=== PATIENT | female | born 1965 | race Caucasian/White ===

== ENCOUNTER 2021-02-22 05:42 | Observation (INO) ==
--- NOTE | 2021-02-17 10:39 | Anesthesiology Consultation ---
Date of Service February 17, 2021 Assessment & Plan (1) Encounter for pre-operative examination: - COVID screening: Per assessment on 02/17: Travel screen negative, no known COVID-19 positive contacts or current COVID-19 related symptoms. Surgeon arranging preop COVID testing (scheduled 02/18; [place]). Awaiting results. - Phentermine instructions: Patient spoke with PAT RN 02/17. She stated she had already taken that day's dose of Phentermine but would start holding it from then until after surgery. Reviewed with Dr. Mireles. Phentermine will be held 4 days prior to surgery. He feels this is long enough and okay to proceed with surgery as scheduled. Chart Review Chart Review: Acceptable Risk for Surgery and Patient NOT seen in Pre Admission Testing History Surgery Operation Date: 02/22/21 07:45 Proposed Procedures p C3-C5 Anterior Cervical Discectomy and Fusion, Spinal Cord Monitoring - Rubens El, Height/Weight Height: 5 ft 4 in Weight: 114.759 kg Allergies Allergy/AdvReac Type Severity Reaction Status Date / Time meloxicam [From Mobic] Allergy blisters Verified 02/17/21 09:50 on tongue morphine Allergy Hives Verified 02/17/21 09:50 Medications Home Medications Medication Instructions Recorded Confirmed Last Taken acetaminophen 325 mg tablet 325 mg PO QID PRN 02/17/21 02/17/21 Unknown (Tylenol) gabapentin 100 mg tablet 100 mg PO TID 02/17/21 02/17/21 Unknown losartan 25 mg tablet 25 mg PO QAM 02/17/21 02/17/21 Unknown phentermine 37.5 mg tablet 37.5 mg PO QAM 02/17/21 02/17/21 Unknown (Adipex-P) sumatriptan succinate 50 mg tablet 50 mg PO UD PRN 02/17/21 02/17/21 Unknown (Imitrex) topiramate 100 mg tablet 100 mg PO HS 02/17/21 02/17/21 Unknown venlafaxine 150 mg 150 mg PO HS 02/17/21 02/17/21 Unknown capsule,extended release 24 hr (Effexor XR) Past Medical History Medical History Depression History of skin cancer s/p excision HTN (hypertension) Migraines Morbid obesity Spinal stenosis Past Family History Family History Mother PONV (postoperative nausea and vomiting) Father Diabetes Past Surgical History Surgical History History of cervical spinal surgery History of colonoscopy History of elbow surgery Left History of endometrial ablation History of esophagogastroduodenoscopy (EGD) History of lumbar surgery History of mandibular surgery History of sinus surgery History of tubal ligation History of umbilical hernia repair PONV (postoperative nausea and vomiting) Social History Smoking Status: Never smoker Do You Dip or Chew Tobacco: No Hx Alcohol Use: No Hx Substance Use: No substance use type: does not use Lab Results Anesthesia Preop Results Results Anesthesia Widget: WBC 9.62 K/uL (4.8-10.8) 02/10/21 Hgb 13.8 g/dL (12.0-16.0) 02/10/21 Hct 42.4 % (37-47) 02/10/21 Plt 339 K/uL (130-400) 02/10/21 Na 138 mmol/L (136-145) 02/10/21 K 3.9 mmol/L (3.5-5.1) 02/10/21 Cl 107 mmol/L (98-107) 02/10/21 CO2 26 mmol/L (21-32) 02/10/21 BUN 18 mg/dl (7-18) 02/10/21 Creat 0.79 mg/dl (0.6-1.2) 02/10/21 Glucose Level 86 mg/dl (70-99) 02/10/21 PT 9.7 Seconds (9.0-12.0) 02/10/21 INR 1.0 (0.9-1.1) 02/10/21 Urine Color Yellow 02/10/21 Urine Appearance Clear (Clear) 02/10/21 Urine pH 5.5 (4.5-7.5) 02/10/21 Urine Specific [place] 1.013 (1.000-1.030) 02/10/21 Urine Protein Negative (Negative) 02/10/21 Urine Glucose (UA) Negative (Negative) 02/10/21 Urine Ketones Negative (Negative) 02/10/21 Urine Blood Negative (Negative) 02/10/21 Urine Nitrite Negative (Negative) 02/10/21 Urine Bilirubin Negative (Negative) 02/10/21 Urine Urobilinogen Negative (Negative) 02/10/21 Urine Leukocyte Esterase Trace (Negative) H 02/10/21 Urine WBC (Auto) 1-5 /hpf (0-5) 02/10/21 Urine RBC (Auto) 0-4 /hpf (0-4) 02/10/21 Urine Hyaline Casts (Auto) 1-5 /lpf (0-5) 02/10/21 Urine Epithelial Cells (Auto) >30 /lpf (0-5) H 02/10/21 Urine Bacteria (Auto) Negative (Negative) 02/10/21 Testing Electrocardiogram Date: 02/10/21 NSR at 70bpm. LAD. Chest X-Ray Date: 02/10/21 FINDINGS: No pneumothorax. No pleural effusions. Hazy appearance of the left lung base likely represents prominent mediastinal fat. Otherwise, the lungs are clear. No evidence for pulmonary edema. The heart is normal in size. Prior cholecystectomy. Cervical spinal fusion hardware is noted. IMPRESSION: No acute process.
[2021-02-22] MEDS ORDERED: LR 500ML BOLUS IV SCH (06:00)
[2021-02-22] MEDS ORDERED: GABAPENTIN 600 MG DOSE PO SCH (06:00)
[2021-02-22] MEDS ORDERED: ACETAMINOPHEN 500 MG TAB PO SCH (06:00)
[2021-02-22] MEDS ORDERED: ceFAZolin 2000MG 2,000 MG/15 ML SYR IV SCH (06:00)
[2021-02-22] MEDS ORDERED: PROPOFOL IV EMULSION 10 MG/ML 20 ML VIAL IV ONE (06:56)
[2021-02-22] MEDS ORDERED: LIDOCAINE 2% 2 ML VIAL/AMP(20MG/ML) INFIL ONE (06:56)
[2021-02-22] MEDS ORDERED: DEXAMETHASONE SOD INJ 4 MG/ML VIAL ONE ×2 (06:56)
[2021-02-22] MEDS ORDERED: ONDANSETRON INJ 2 MG/ML 2 ML VIAL ONE ×2 (06:56→07:54)
[2021-02-22] MEDS ORDERED: ROCURONIUM BROMIDE 10 MG/ML 5 ML VIAL IV ONE (06:57)
[2021-02-22] MEDS ORDERED: NEOSTIGMINE METHYLSULFATE 1 MG/ML 10ML VIAL ONE (06:57)
[2021-02-22] MEDS ORDERED: MIDAZOLAM HCL 1 MG/ML 2ML VIAL ONE (06:57)
[2021-02-22] MEDS ORDERED: GLYCOPYRROLATE 0.2 MG/ML VIAL ONE (06:57)
[2021-02-22] MEDS ORDERED: fentaNYL citrate 100 MCG/2 ML VIAL ONE ×2 (06:58→09:16)
[2021-02-22] MEDS ORDERED: SCOPOLAMINE 1 MG TDSY TD ONE ×2 (07:09→07:11)
[2021-02-22] MEDS ORDERED: MEPERIDINE HCL 25 MG/ML CARP/VIAL IV PRN (07:11)
[2021-02-22] MEDS ORDERED: ATROPINE SULFATE 0.1 MG/ML 10ML SYR IV PRN (07:11)
[2021-02-22] MEDS ORDERED: PHENYLEPHRINE 100MCG/ML 5ML SYR IV PRN (07:11)
[2021-02-22] MEDS ORDERED: LABETALOL HCL IV 5 MG/ML 20ML IV PRN (07:11)
[2021-02-22] MEDS ORDERED: ePHEDrine sulfate 50 MG/ML AMP IV PRN (07:11)
[2021-02-22] MEDS ORDERED: fentaNYL citrate 100 MCG/2 ML VIAL IV PRN (07:11)
[2021-02-22] MEDS ORDERED: ONDANSETRON INJ 2 MG/ML 2 ML VIAL IV PRN ×2 (07:11→11:39)
--- NOTE | 2021-02-22 07:29 | History & Physical Bridge Note ---
Date of Service February 22, 2021 History & Physical Bridge Note I have examined the patient, reviewed the History & Physical and in the interval since the performance of the History & Physical I have noted the following changes of clinical significance: no changes noted
--- NOTE | 2021-02-22 07:30 | History & Physical Report ---
Date of Service February 22, 2021 Assessment & Plan (1) Cervical stenosis of spinal canal: Plan: C3-C5 anterior cervical discectomy and fusion History of Present Illness Chief Complaint: Neck and arm pain Primary Care Provider: Cleve Richards MD This is a 56-year-old female presents with chronic persistent neck and arm pain after failing course of nonoperative care she is here for surgical intervention. Allergies Allergy/AdvReac Type Severity Reaction Status Date / Time meloxicam [From Mobic] Allergy blisters Verified 02/22/21 06:18 on tongue morphine Allergy Hives Verified 02/22/21 06:18 Home Medications Medication Instructions Recorded Confirmed Type acetaminophen 325 mg tablet 325 mg PO QID PRN 02/17/21 02/22/21 History (Tylenol) gabapentin 100 mg tablet 100 mg PO TID 02/17/21 02/22/21 History losartan 25 mg tablet 25 mg PO QAM 02/17/21 02/22/21 History phentermine 37.5 mg tablet 37.5 mg PO QAM 02/17/21 02/22/21 History (Adipex-P) sumatriptan succinate 50 mg tablet 50 mg PO UD PRN 02/17/21 02/22/21 History (Imitrex) topiramate 100 mg tablet 100 mg PO HS 02/17/21 02/22/21 History venlafaxine 150 mg 150 mg PO HS 02/17/21 02/22/21 History capsule,extended release 24 hr (Effexor XR) Past Med/Surg History Medical History Depression History of skin cancer s/p excision HTN (hypertension) Migraines Morbid obesity Spinal stenosis Surgical History History of cervical spinal surgery History of colonoscopy History of elbow surgery Left History of endometrial ablation History of esophagogastroduodenoscopy (EGD) History of lumbar surgery History of mandibular surgery History of sinus surgery History of tubal ligation History of umbilical hernia repair PONV (postoperative nausea and vomiting) Family History Mother PONV (postoperative nausea and vomiting) Father Diabetes Social History Smoking Status: Never smoker Second Hand Exposure: Yes ( is a smoker); Do You Dip or Chew Tobacco: No; Hx Alcohol Use: No Hx Substance Use: No Preferred Language: Khmer Communication Ability: Effective Assembler Handbags Required: No Beliefs That Will Affect Care: None Current Living Situation: Spouse and Family Feels Safe at Home: Yes Safety Concerns: Feels Safe At This Time Assistive Devices: Contacts and Glasses Physical Exam Physical Exam: Patient is alert and oriented Heart regular rhythm Lungs clear to auscultation Results & Data ([facility]) Vital Signs (Past 12 Hours) Vital Signs Temp Pulse Resp BP Pulse Ox 02/22/21 06:26 36.8 C 84 16 169/104 H 96
[2021-02-22] MEDS ORDERED: FLOSEAL HEMOSTATIC MATRIX 10ML TOP ONE (08:25)
[2021-02-22] MEDS ORDERED: ePHEDrine sulfate 50 MG/ML SYR ONE (09:13)
[2021-02-22] MEDS ORDERED: PHENYLEPHRINE 100MCG/ML 5ML SYR ONE (09:13)
--- NOTE | 2021-02-22 09:26 | Operative Report ---
Post Operative Report Pre & Post Diagnosis Operation Date: 02/22/21 07:45 Pre-Op Diagnosis: Spinal Stenosis, Cervical Region Post-Op Diagnosis: Spinal Stenosis, Cervical Region I identified the patient and participated in the time-out.: Yes Procedure Operation Date: 02/22/21 07:45 Actual Procedures #1 anterior cervical discectomy with bilateral foraminotomies C3-4 and C4-C5. #2 anterior cervical arthrodesis C3-C4 and C4-C5. #3 placement of globus coalition cage 7 mm C3-C4 and 6 mm at C4-C5 both filled with I factor. Surgeon Rubens El, DO Family Consumer Scientist Malina Ba Estimated Blood Loss 10 Findings See Below Patient is 5 foot 415 kg with a BMI in excess of 43. Patient's body habitus did contribute to significant technical difficulty with patient positioning and exposure adding at least 50% increase to the operative time. Specimens None Indications This is a 56-year-old female who presents with above-mentioned diagnosis after failing course of nonoperative care is here for the above-mentioned procedure. Description of Procedure Patient was met with identified informed consent obtained. Patient was then taken to the operative suite underwent a patient placed in spine position [place] with head Daley gang head saw operator. All bony prominences well-padded eyes inspected to ensure no external pressure placed upon. This point the anterior cervical spine was prepped and draped in a sterile fashion. The assistance of fluoroscopy identified the C for vertebral body and a transverse incision was placed along the right anterior aspect of the cervical spinal lines region. Sharp dissection with the assistance of bipolar electrocautery was performed down to expose the anterior cervical spine from C3-C5. Is able to retractors placed. Then performed a complete discectomy of C3-C4 out to the uncovertebral joints bilaterally. Distracting pins utilized to assist in visualization. Removed all posterior annular fibers longitudinal ligament bilateral foraminotomies performed. The endplates were then burred to subcortical bleeding bone and a 7 mm coalition interbody cage filled with I factor was tapped in position and screwed into place with a fluoroscopic visualization. And then proceeded to C4-C5 again complete discectomy performed out to the uncovertebral's bilaterally. [place] distracting pins again utilized. Removed all posterior annular fibers longitudinal ligament bilateral foraminotomies performed. Endplates burred to subcortical being bone and a 6 mm globus cage filled with I factor tapped in position and screwed into place with fluoroscopic visualization. Incision was then copiously irrigated explored to ensure no d amage to surrounding structures remaining bleeding. 10 round JASPREET drain inserted. Was then closed with 2 Vicryl in a fashion of 4 Monocryl for final skin closure. Steri-Strip sterile dressings placed. Patient will continue PACU stable condition. Please note spinal cord monitoring was utilized at the procedure no changes noted. Lastly Malina Ba was present at the entire procedure involved the patient positioning complex portions of the surgery and final skin closure. I attest to the content of the Intraoperative Record and any orders documented therein. Any exceptions are noted below.
--- NOTE | 2021-02-22 10:47 | Anesthesiology Progress Note ---
Date of Service February 22, 2021 Anesthesia Post Procedure Vital Signs Vital Signs: Temp Pulse Pulse Resp BP Pulse Ox 02/22/21 10:35 85 14 151/101 H 94 02/22/21 10:25 72 14 155/109 H 96 02/22/21 10:15 79 12 132/100 97 02/22/21 10:05 89 12 163/101 H 96 02/22/21 09:56 80 15 152/96 H 97 02/22/21 09:46 86 16 151/99 H 93 02/22/21 09:37 36.1 C L 85 16 163/94 H 97 02/22/21 06:26 36.8 C 84 16 169/104 H 96 Pain Intensity Upper Posterior Neck: Pain Intensity: 2 Transfer of Care Handoff Completed per policy Notes Mental Status: alert / awake / arousable Patient Amnestic to Procedure: Yes Nausea / Vomiting: adequately controlled Pain: adequately controlled Airway Patency, RR, SpO2: stable & adequate BP & HR: stable & adequate Hydration State: stable & adequate Anesthetic Complications: no major complications apparent and Pt Satisfied with anesthetic care Notes: The patient is awake and comfortable. Her vital signs are stable. The patient's neck does not appear swollen and her dressing is dry. The patient was instructed to call for a nurse immediately if she experiences any trouble breathing or any neck swelling on the floor.
[2021-02-22] MEDS ORDERED: RACEPINEPHRINE 2.25% NEBU SOLN 0.5 ML VIAL INH PRN (11:39)
[2021-02-22] MEDS ORDERED: PROMETHAZINE HCL 12.5 MG in SODIUM CHLORIDE 0.9% 50 ML IV PRN (11:39)
[2021-02-22] MEDS ORDERED: hydrOXYzine HCl 25 MG TAB PO PRN (11:39)
[2021-02-22] MEDS ORDERED: HYDROmorphone INJ 0.5 MG/0.5 ML SYR IV PRN (11:39)
[2021-02-22] MEDS ORDERED: ACETAMINOPHEN 500 MG TAB PO PRN (11:39)
[2021-02-22] MEDS ORDERED: bisacodyL 10 MG SUPP PR PRN (11:39)
[2021-02-22] MEDS ORDERED: dexAMETHasone 8 MG in SYRINGE 0 ML IV PRN (11:39)
[2021-02-22] MEDS ORDERED: diphenhydrAMINE Capsule 25 MG CAP PO PRN (11:39)
[2021-02-22] MEDS ORDERED: DO NOT ADMINISTER PNEUMOCOCCAL VACCINE PRN (11:39)
[2021-02-22] MEDS ORDERED: ONDANSETRON 4 MG OD TAB PO PRN (11:39)
[2021-02-22] MEDS ORDERED: FAMOTIDINE 20 MG TAB PO PRN (11:39)
[2021-02-22] MEDS ORDERED: SUMAtriptan succinate 50 MG TAB PO PRN (11:39)
[2021-02-22] MEDS ORDERED: LORazepam 0.5 MG TAB PO PRN (11:39)
[2021-02-22] MEDS ORDERED: HYDROmorphone INJ 1 MG/ML SYRINGE IV PRN (11:39)
[2021-02-22] MEDS ORDERED: NALOXONE HCL 0.4 MG/1 ML VIAL/CARP IV PRN (11:39)
[2021-02-22] MEDS ORDERED: MAGNESIUM HYDROXIDE SUSP 30 ML UDC PO PRN (11:39)
[2021-02-22] MEDS ORDERED: ALUMINUM/MAGNESIUM SUSP 30 ML UDC PO PRN (11:39)
[2021-02-22] MEDS ORDERED: ACETAMINOPHEN 1,000 MG/100 ML VIAL IV PRN (11:39)
[2021-02-22] MEDS ORDERED: DO NOT ADMINISTER FLU VACCINE PRN (11:39)
[2021-02-22] MEDS ORDERED: METOCLOPRAMIDE HCL INJ 5 MG/ML 2 ML VIAL IV PRN (11:39)
[2021-02-22] MEDS ORDERED: SOD PHOSPHATE/SOD BIPHOSPHATE ENEMA 132 ML BTL PR PRN (11:39)
[2021-02-22] MEDS ORDERED: LORazepam 0.5 MG/1 ML VIAL IV PRN (11:39)
--- NOTE | 2021-02-22 11:53 | Fluoroscopy Report ---
FL cervical 2-3V CLINICAL HISTORY: C3-5 ACDF COMPARISON STUDY: None FLUOROSCOPY TIME: 11 6 seconds. NUMBER OF FLUOROSCOPIC IMAGES: 2 FINDINGS: Intraoperative fluoroscopic images are presented for review. ACDF placement is seen within C3 and C4 level. Also multiple metallic screws and fixating plates are seen within lower cervical-upper thoracic level. Endotracheal tube is projecting over tracheal air co lumn. IMPRESSION: As above. ACT 112: Negative or not required by law. The above report was generated using voice recognition software. It may contain grammatical, syntax o r spelling errors. Electronically signed by: Padmini Blackwood DO 02/22/2021 11:52 AM
--- NOTE | 2021-02-22 12:40 | Hospitalist Consultation ---
Date of Consultation February 22, 2021 Assessment & Plan (1) Cervical stenosis of spinal canal: s/p C3-C5 anterior cervical discectomy and fusion with Dr. El on 02/22. EBL 10cc. 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) Continue losartan 25mg daily but hold for AM dose to ensure BMP stable --> will order 1 dose for now as BP currently 148/95 Hydralazine added prn SBP >180 or DBP >90 Continue ot monitor (3) Migraines: and depression -- continue topamax 100mg, effexor 150mg HS Sumatriptan prn migraine -- no migraine/headache reported currently Continue to monitor (4) Morbid obesity: On phentermine 37.5mg daily -- hold while in hospital (also non-formulary) -- discussed with patient as well BMI 43.5 Encourage weight loss/dietary changes (5) DVT prophylaxis: SCDs chemical contraindicated due to above surgery Dispo: continued inpatient stay Thank you for allowing hospitalist service to participate in the care of Ms Castillo. Hospitalist service will follow along while inpatient, but anticipate discharge tomorrow. Please call with any questions/concerns. Supervising Physician Co-Signing Physician Notes PA Supervision Note: I personally saw and examined the patient. I verified all paz points and agree with ARMANDO Moon with the following exceptions and/or additions: S-patient feeling fairly well, is tolerating liquids. Minimal pain in the neck. Denies chest pain or shortness of breath History and ROS reviewed O- Vitals reviewed Gen: AAOx3, NAD HEENT: Anicteric sclerae, EOMI, neck in brace with JASPREET drain with serosanguineous fluid CV: RRR no mgr nl S1S2 Pulm: CTAB no wcr Abd: +BS soft NT ND no masses or hernias Ext: No edema, SCDs in place Skin: No rashes, warm/dry Neuro: Moving all extremities A/L-33-pknt-old female here for ACDF with history as above Plan outlined as above We will follow blood pressures, labs in the morning History of Present Illness Reason for Consultation: medical management Requesting Physician: Dr El Attending Physician: Rubens El, DO History of Present Illness 56yo female with PMHx significant for HTN, migrine, obesity, depression and spi nal stenosis, presented for #1 anterior cervical discectomy with bilateral foraminotomies C3-4 and C4-C5. #2 anterior cervical arthrodesis C3-C4 and C4- C5. #3 placement of globus coalition cage 7 mm C3-C4 and 6 mm at C4-C5 both filled with I factor with Dr. El this morning. Patient did have elevated BP prior to surgery and admits she did not take her losartan this morning. Discussed will add for AM if Cr stable and utilize hydralazine IV as needed for meantime. She has history of nausea and vomiting following anesthesia and had gotten a scopolamine patch which has since been removed. No n/v. She does note dry mouth and drinking water -- should improve since scop patch d/c'd. Tolerating ice cream currently. No shortness of breath, cough, or difficulty swallowing secretions. Pain to shoulder (left) prior to surgery has resolved. Pain currently 3/10 and reported tolerable without need for anything at this time. She is hopeful for discharge tomorrow as that is what she states Dr El told her . No history of smoking, etoh. No DM, CAD hx. No fever, chills, chest pain, shortness of breath, abdominal pain, nausea, vomiting at this time. Questions/concerns addressed at this time. Allergies Allergy/AdvReac Type Severity Reaction Status Date / Time meloxicam [From Mobic] Allergy blisters Verified 02/22/21 06:18 on tongue morphine Allergy Hives Verified 02/22/21 06:18 Home Medications Medication Instructions Recorded Confirmed Type acetaminophen 325 mg tablet 325 mg PO QID PRN 02/17/21 02/22/21 History (Tylenol) gabapentin 100 mg tablet 100 mg PO TID 02/17/21 02/22/21 History losartan 25 mg tablet 25 mg PO QAM 02/17/21 02/22/21 History phentermine 37.5 mg tablet 37.5 mg PO QAM 02/17/21 02/22/21 History (Adipex-P) sumatriptan succinate 50 mg tablet 50 mg PO UD PRN 02/17/21 02/22/21 History (Imitrex) topiramate 100 mg tablet 100 mg PO HS 02/17/21 02/22/21 History venlafaxine 150 mg 150 mg PO HS 02/17/21 02/22/21 History capsule,extended release 24 hr (Effexor XR) Patient History Medical History Depression History of skin cancer s/p excision HTN (hypertension) Migraines Morbid obesity Spinal stenosis Surgical History History of cervical spinal surgery History of colonoscopy History of elbow surgery Left History of endometrial ablation History of esophagogastroduodenoscopy (EGD) History of lumbar surgery History of mandibular surgery History of sinus surgery History of tubal ligation History of umbilical hernia repair PONV (postoperative nausea and vomiting) Family History Mother PONV (postoperative nausea and vomiting) Father Diabetes Social History Smoking Status: Never smoker Second Hand Exposure: Yes ( is a smoker); Do You Dip or Chew Tobacco: No; Hx Alcohol Use: No Hx Substance Use: No Preferred Language: Hebrew Communication Ability: Effective Grain Scooper Required: No Beliefs That Will Affect Care: None Current Living Situation: Spouse and Family Feels Safe at Home: Yes Safety Concerns: Feels Safe At This Time Assistive Devices: None Review of Systems Review of Systems: All systems reviewed & are unremarkable except as noted in HPI & below Physical Exam Constitutional: WD/WN, vitals as above + obese, cooperative and comfortable Eyes: + anicteric sclerae and PERRL ENMT: dry mm Neck: cervical collar in place JASPREET with scant bloody drainage No stidor, crepitus appreciated Respiratory: normal respiratory effort; no cough Auscultation: lungs clear to auscultation bilaterally; no crackles, no rhonchi and no wheezes 97 % on 2L NC Cardiovascular: RRR, no murmur, no edema Gastrointestinal (Abdomen): normal bowel sounds, soft, nontender, no hepatosplenomegaly Musculoskeletal: no cyanosis or clubbing, extremities motor strength 5/5 Skin: warm, dry Neurologic: patellar DTR's 2+ bilat, sensation intact and PERRL, EOMI, accommodation nl, no face palsy, no dysarthria Psychiatric: A+Ox3, euthymic affect Genitourinary: franklin draining yellow urine Results & Data Results & Data ([facility]) Vital Signs (Past 12 Hours) Vital Signs Temp Pulse Pulse Pulse Resp BP Pulse Ox 02/22/21 11:56 87 18 132/87 98 02/22/21 11:30 36.6 C 86 16 134/86 96 02/22/21 11:18 36.6 C 88 16 149/88 H 96 02/22/21 10:45 36.4 C L 81 17 124/98 95 02/22/21 10:35 85 14 151/101 H 94 02/22/21 10:25 72 14 155/109 H 96 02/22/21 10:15 79 12 132/100 97 02/22/21 10:05 89 12 163/101 H 96 02/22/21 09:56 80 15 152/96 H 97 02/22/21 09:46 86 16 151/99 H 93 02/22/21 09:37 36.1 C L 85 16 163/94 H 97 02/22/21 06:26 36.8 C 84 16 169/104 H 96 Laboratory Results 02/22/21 02/22/21 02/22/21 Range/Units 06:26 06:16 06:16 COVID-19 Eval Order Covid19 IDNow [facility] SARS-CoV-2, RNA, NAAT NEGATIVE (NEGATIVE) Blood Type B Negative Antibody Screen NEGATIVE PG Care Time/CCT Total # of Minutes Spent Total Time Spent with Patient: Total time spent is greater than 50% in coordination of care (as documented) at patient's floor/unit and/or counseling patient: Coding Level of Care Code 61265 Inpt Consult Level 3 Diagnoses Cervical stenosis of spinal canal M48.02 HTN (hypertension) I10 Migraines G43.909 Morbid obesity E66.01 DVT prophylaxis Z29.9
[2021-02-22] MEDS ORDERED: hydrALAZINE HCL 20 MG/ML VIAL IV PRN (13:02)
[2021-02-22] MEDS: LACTATED RINGER'S 1,000 ML IV SCH ×2 (13:13→22:10)
[2021-02-22] MEDS ORDERED: LOSARTAN POTASSIUM 25 MG TAB PO ONE (13:30)
[2021-02-22] MEDS: GABAPENTIN 100 MG CAP PO SCH ×2 (14:03→20:03)
[2021-02-22] MEDS ORDERED: CHECK SCOPOLAMINE PATCH PLACEMENT SCH (16:00)
[2021-02-22] MEDS: ceFAZolin 2000MG 2,000 MG/15 ML SYR IV SCH (17:54)
[2021-02-22] MEDS: oxyCODONE HCL IR 5 MG TAB (IMMEDIATE RELEASE) PO PRN ×2 (17:55→22:10)
[2021-02-22] MEDS: traMADol HCL 50 MG TABLET PO PRN (20:03)
[2021-02-22] MEDS ORDERED: VENLAFAXINE HCL XR 150 MG CAPXR PO SCH (21:00)
[2021-02-22] MEDS ORDERED: TOPIRAMATE 100 MG TAB PO SCH (21:00)
[2021-02-22] MEDS ORDERED: DOCUSATE SODIUM/SENNA 50/8.6MG TAB PO SCH (21:00)
[2021-02-23] MEDS: ceFAZolin 2000MG 2,000 MG/15 ML SYR IV SCH (00:04)
[2021-02-23] MEDS: traMADol HCL 50 MG TABLET PO PRN ×2 (00:07→04:08)
[2021-02-23] MEDS: oxyCODONE HCL IR 5 MG TAB (IMMEDIATE RELEASE) PO PRN ×3 (02:11→10:52)
[2021-02-23] MEDS ORDERED: POLYETHYLENE (MIRALAX) 17 GM PACK PO SCH (06:00)
[2021-02-23 06:02] LABS: Hematocrit (blood only) 39.1 % (37-47); Hemoglobin 12.5 g/dL (12.0-16.0); Mean Corpuscular Hemoglobin 27.5 pg (25-34); Mean Corpuscular Volume 85.9 fL (80-100); Mean Platelet Volume 9.9 fL (7.4-10.4); Platelet Count 317 K/uL (130-400); RDW Coefficient of Variation 15.6 % (11.5-14.5); RDW Standard Deviation 49.4 fL (36.4-46.3); Red Blood Count 4.55 M/uL (4.2-5.4); White Blood Count 13.06 K/uL (4.8-10.8)
[2021-02-23 06:33] LABS: BUN Creatinine Ratio 13.5 (10-20); Calcium 8.7 mg/dl (8.5-10.1); Creatinine Clr Calc Pharmacy 94.2 ml/min; Est GFR (African American) 90.7 ml/min; Est GFR (Non-African American) 78.2 ml/min; Potassium 3.9 mmol/L (3.5-5.1)
--- NOTE | 2021-02-23 08:21 | Discharge Summary ---
Date of Service February 23, 2021 Admission HPI Per Admitting Provider This is a 56-year-old female presents with chronic persistent neck and arm pain after failing course of nonoperative care she is here for surgical intervention. Principal Diagnosis Cervical spinal stenosis with radiculopathy Discharge Data Allergies Allergy/AdvReac Type Severity Reaction Status Date / Time meloxicam [From Mobic] Allergy blisters Verified 02/22/21 06:18 on tongue morphine Allergy Hives Verified 02/22/21 06:18 Consultations 02/22/21 12:13 Consult Hospitalist Routine Procedures Performed Operation Date: 02/22/21 07:45 Actual Procedures p C3-C5 Anterior Cervical Discectomy and Fusion, Spinal Cord Monitoring(Not Applicable) - Rubens El DO Ordered Studies 02/22/21 07:45 FL cervical 2-3V Routine Hospital Course (1) Cervical stenosis of spinal canal: Patient went anterior cervical discectomy and fusion trial exhausting orthopedic for postoperative. Postop day 1 she is swallowing well no hoarseness. Arm and neck symptoms markedly improved. JASPREET drain decreasing probably. Excellent strength testing. Socially discharged home. Discharge orders and instructions found the chart for further review. Total Time Total Time Spent Total Time Spent (In Minutes): 20 minutes Discharge Plan Discharge Items Patient Disposition: Home - Self-Care Reason For Visit: Spinal Stenosis, Cervical Region Discharge Diagnosis: Cervical spinal stenosis with radiculopathy Activity: As commented below Non-emergency contact: Primary Care Provider Call non-emergency contact if: you have any medication questions Follow-up/Referrals: Cleve Richards MD [Primary Care Provider] - Diet: Regular Addtl Attending Provider Instructions: ACTIVITY RECOMMENDATIONS: SELF CARE INSTRUCTIONS AFTER CERVICAL FUSIONS 1. No smoking. Smoking drastically decreases the chance of a solid fusion. 2. No bending, lifting more than 5 pounds, or twisting (roll like a log when turning in bed). 3. You may shower 3 days after surgery. Thoroughly dry wound. Do not soak in the tub. 4. Cervical collar: Must be worn at all times including sleeping. You may remove the brace only to bath, eat and if you are sitting in a recliner. 5. Please walk as much as you can for exercise. Gradually increase the distance that you walk as your endurance increases. SPECIAL CARE INSTRUCTIONS: VERY IMPORTANT TO READ AND REVIEW A. Do not take any anti-inflammatory medications (i.e. Indocin, Advil, Aspirin, Naprosyn, Aleve, Motrin, etc.) as these may inhibit the chance of a solid fusion. Tylenol is okay to take. B. Your surgical incision has been closed with a cosmetic suture under the skin that will dissolve in about 6 weeks. In 14 days, you can use a pair of clean scissors and cut the suture that is left outside of the skin at the ends of your incision. C. Complications are uncommon, but please contact us if you have any signs or symptoms of: 1. wound infection (fever higher than 102.5 degrees F, redness, separation of wound, drainage, or increasing pain from the incision) 2. blood clots in legs (pain, swelling, redness and warmth in legs) 3. urinary tract infection (fever higher than 102.5 degrees, burning upon urination or increased frequency of urination) 4. nerve problems (inability to walk on your toes or heels, numbness, loss of bowel or bladder control) 5. any other symptoms that concern you. D. Please call the office at if you have any concerns or que stions about your operation or recovery. MANAGING PAIN AFTER SPINAL SURGERY 1. Narcotic medication is intended for short-term use and will be provided for surgical pain. Surgical pain usually lasts for a period of 4-6 weeks. Narcotic medication includes Percocet, Vicodin, Darvocet, Tylenol #3 or Lortab. 2. Longer-term pain is more appropriately treated with non-narcotic medication such as Tylenol ES. 3. Muscle spasm is not appropriately treated with narcotics. Muscle relaxers such as Soma, Flexeril or Skelaxin can be used along with Tylenol ES. 4. Remember that we all live with some "aches and pains". This is not unusual or uncommon after an injury or as we get older. 5. We will provide appropriate medication within the normal guidelines of their prescribed use. We will also be very cautious and aware of potential abuse and extended duration of patients' medication needs. 6. Please allow 2-3 days to process refills. Prescriptions will not be mailed but must be picked up at the office. FOLLOW UP VISIT: Keep your scheduled follow-up appointment. Any questions, please call the office at . Pending Studies at Discharge: No Stand-Alone Forms: My [facility], Smoking Cessation Medications and DC Order Prescriptions: New tramadol 50 mg tablet 50 mg PO Q6H PRN (Reason: pain, moderate) Qty: 30 RF: 0 oxycodone 5 mg tablet 5 mg PO Q6H PRN (Reason: pain, severe) Qty: 30 RF: 0 Continued acetaminophen [Tylenol] 325 mg Tablet 325 mg PO QID PRN (Reason: Pain) RF: 0 venlafaxine [Effexor XR] 150 mg Capsule,Extended Release 24hr 150 mg PO HS RF: 0 sumatriptan succinate [Imitrex] 50 mg Tablet 50 mg PO UD PRN (Reason: migraines) RF: 0 phentermine [Adipex-P] 37.5 mg Tablet 37.5 mg PO QAM RF: 0 losartan 25 mg Tablet 25 mg PO QAM RF: 0 topiramate 100 mg Tablet 100 mg PO HS RF: 0 gabapentin 100 mg Tablet 100 mg PO TID RF: 0 Discharge Orders: Discharge Order (Routine); Ordered 02/23/21 Ordered By: Rubens El Admission Data Admit Date/Time: 02/22/21 09:29 Attending Provider: Rubens El Admit Provider: Rubens El Primary Care Provider: Cleve Richards Other Providers: Christine Summers
[2021-02-23] MEDS: GABAPENTIN 100 MG CAP PO SCH (08:24)
[2021-02-23] MEDS ORDERED: dexAMETHasone 8 MG in SYRINGE 0 ML IV SCH (09:00)
[2021-02-23] MEDS ORDERED: LOSARTAN POTASSIUM 25 MG TAB PO SCH (09:00)
== END 2021-02-23 11:50 | disposition home or self-care (01) ==
LOC: ASU 05:42 → 3E 09:29 → INTOOBSV 09:29